=== PATIENT | male | born 1995 | race Caucasian/White ===

== ENCOUNTER 2017-01-07 23:49 | Emergency (ER) | payer OTHER | END 2017-01-08 04:32 | disposition home or self-care (01) | LOC: ER1 23:49 → EDBD 23:49 → ER1 01-08 04:32 | DX: S00.12XA Contusion of left eyelid and periocular area, initial encounter (principal); S50.811A Abrasion of right forearm, initial encounter; S70.312A Abrasion, left thigh, initial encounter; S70.311A Abrasion, right thigh, initial encounter; S50.812A Abrasion of left forearm, initial encounter; V86.59XA Driver of other special all-terrain or other off-road motor vehicle injured in nontraffic accident, initial encounter; Y93.89 Activity, other specified | CPT/HCPCS: 73090; 99284 ==